=== PATIENT | female | born 1990 ===

== ENCOUNTER 2024-01-09 06:35 | Outpatient (RCR) | payer OTHER, SELFPAY | END 2024-01-09 23:59 | disposition home or self-care (01) | LOC: RPT 06:35 | PROVIDERS: ATTENDING PHYSICIAN Internal Medicine | DX: M54.16 Radiculopathy, lumbar region (principal); M25.571 Pain in right ankle and joints of right foot; Z73.6 Limitation of activities due to disability | CPT/HCPCS: 97110; 97112; 97140; 97161 ==

== ENCOUNTER 2024-02-06 06:52 | Outpatient (RCR) | payer OTHER, SELFPAY | END 2024-02-06 23:59 | disposition home or self-care (01) | LOC: RPT 06:52 | PROVIDERS: ATTENDING PHYSICIAN Internal Medicine | DX: M54.16 Radiculopathy, lumbar region (principal); M25.571 Pain in right ankle and joints of right foot; Z73.6 Limitation of activities due to disability | CPT/HCPCS: 97110; 97112; 97140 ==

== ENCOUNTER 2024-02-26 08:04 | Outpatient (RCR) | payer OTHER, SELFPAY | END 2024-02-27 06:08 | disposition home or self-care (01) | LOC: RPT 08:04 | PROVIDERS: ATTENDING PHYSICIAN Internal Medicine | DX: M54.16 Radiculopathy, lumbar region (principal); M25.571 Pain in right ankle and joints of right foot; Z73.6 Limitation of activities due to disability | CPT/HCPCS: 97110; 97112; 97140 ==